=== PATIENT | male | born 1990 | race Two or more races ===

== ENCOUNTER → 2023-12-14 | Outpatient (CLI) | payer OTHER | END | disposition home or self-care (01) | LOC: XYW 09:40 | PROVIDERS: ATTEND Personal Emergency Response Attendant | DX: S02.609D Fracture of mandible, unspecified, subsequent encounter for fracture with routine healing (principal); J33.8 Other polyp of sinus; M79.89 Other specified soft tissue disorders; X58.XXXD Exposure to other specified factors, subsequent encounter | CPT/HCPCS: 70486 ==